=== PATIENT | male | born 1935 | race Hispanic/Latino ===

== ENCOUNTER 2017-09-16 13:50 | Outpatient (CLI) | payer MEDICARE ==
--- NOTE | 2017-09-16 15:12 | RAD ---
2 VIEWS CHEST: Date: 09/16/17 COMPARISON: 04/26/14. HISTORY: COPD exacerbation. FINDINGS: There are increased linear and interstitial densities bilaterally with pulmonary hyperinflation. Thes e findings are consistent with COPD in the proper clinical setting. Bilateral hilar shadows are prominent, right greater than left. There is atherosclerotic calcificatio n in the aortic arch. IMPRESSION: 1. Linear interstitial density and pulmonary hyperinflation, consistent with the provided history of COPD. 2. Bilateral hilar shadows are prominent, likely vascular in nature on the basis of pulmonary arteri al dilation. In order to exclude underlying lymphadenopathy, a follow-up chest CT with IV contrast is advised. No lobar consolidation or alveolar edema. CODE T. POS: [facility]
== END 2017-09-16 13:51 | disposition home or self-care (01) ==
LOC: SCSRAD 13:50
PROVIDERS: ATTEND Family Medicine
DX: J44.1 Chronic obstructive pulmonary disease with (acute) exacerbation (principal)
CPT/HCPCS: 71020

== ENCOUNTER 2017-10-29 11:00 | Emergency (ER) | payer MEDICARE ==
--- NOTE | 2017-10-29 12:09 | RAD ---
CHEST ONE VIEW: HISTORY: An 82-year-old male with COPD exacerbation. J44.1 FINDINGS: Atherosclerosis of the aorta. There are some calcifications in the left upper chest consistent with old granulomatous disease. Stable-appearing blunting of the costophrenic angles and some linear scar ring in the bases. IMPRESSION: Stable atherosclerosis of the aorta with some ectasia. Old granulomatous disease. Mild scarring in the lower lung zones bilaterally, unchanged from prior exam, 09/16/2017. POS: [facility]
[2017-10-29] MEDS ORDERED: methylPREDNISolone Sod Succ/PF 125 MG/2 ML VIAL ONE (13:36)
[2017-10-29 13:44] LABS: Mean Corpuscular HGB CONC 33.5 g/dL (32.0-36.0); Mean Platelet Volume 6.5 fL (7.4-10.4); Platelet Count 160 thou/uL (130-400); RBC Distribution Width 11.9 % (11.5-14.5); Red Blood Cell (RBC) Count 3.82 mill/uL (4.70-6.10); White Blood Cell (WBC) Count 6.5 thou/uL (4.8-10.8)
[2017-10-29 13:56] LABS: Band 17 % (5-11); Eosinophils 1 % (0-10); Lymphocytes 3 % (21-51); MDiff Complete? YES; Macrocytosis SLIGHT = 6-15 cells (100X) (0-5/hpf); Monocytes 8 % (0-10); Neutrophil 70 % (42-75); Ovalocytes SLIGHT = 2-5 cells (100X) (0-1/hpf); PLT Morphology Comment Appears Adequate; Polychromasia SLIGHT = 2-3 cells (100X) (0-2/hpf); Reactive Lymphocytes 1 % (0-10)
[2017-10-29 14:07] LABS: ALT (SGPT) 16 U/L (8-55); AST (SGOT) 17 U/L (5-34); Albumin 3.9 g/dL (3.4-4.8); Alkaline Phosphatase 59 U/L (40-150); Anion Gap 13 mmol/L (10-20); BUN (Urea Nitrogen) 16 mg/dL (8.4-25.7); Bilirubin, Total 0.4 mg/dL (0.2-1.2); Calc. Creatinine Clearance 0 mL/min (70-130); Calcium 9.2 mg/dL (7.8-10.44); Carbon Dioxide 26 mmol/L (23-31); Chloride 100 mmol/L (98-107); Estimated GFR-MDRD 88; Globulin 2.7 g/dL (2.4-3.5); Glucose 99 mg/dL (83-110); Lipase 8 U/L (8-78); Potassium 3.9 mmol/L (3.5-5.1); Protein, Total 6.6 g/dL (5.8-8.1); Sodium 135 mmol/L (136-145)
[2017-10-29 14:08] LABS: CKMB 1.8 ng/mL (0-6.6); Troponin I 0.016 ng/mL (< 0.028)
== END 2017-10-29 15:25 | disposition home or self-care (01) ==
LOC: ERS 11:00
DX: J20.9 Acute bronchitis, unspecified (principal); J06.9 Acute upper respiratory infection, unspecified; E11.9 Type 2 diabetes mellitus without complications; I10 Essential (primary) hypertension; G20 Parkinson's disease; J44.9 Chronic obstructive pulmonary disease, unspecified; Z87.891 Personal history of nicotine dependence; Z79.899 Other long term (current) drug therapy; Z79.51 Long term (current) use of inhaled steroids
CPT/HCPCS: 71010; 80053; 82553; 83690; 83880; 84484; 85025; 93005; 94640; 96374; J2930; J7620

== ENCOUNTER 2018-04-29 12:02 | Inpatient (IN) | payer MEDICARE ==
[2018-04-29 12:57] LABS: ALT (SGPT) 17 U/L (8-55); Albumin 3.9 g/dL (3.4-4.8); Alkaline Phosphatase 66 U/L (40-150); Anion Gap 17 mmol/L (10-20); BUN (Urea Nitrogen) 28 mg/dL (8.4-25.7); Bilirubin, Total 0.7 mg/dL (0.2-1.2); Calc. Creatinine Clearance 0 mL/min (70-130); Calcium 9.3 mg/dL (7.8-10.44); Carbon Dioxide 25 mmol/L (23-31); Chloride 93 mmol/L (98-107); Estimated GFR-MDRD 60; Globulin 3.4 g/dL (2.4-3.5); Glucose 112 mg/dL (83-110); Potassium 3.7 mmol/L (3.5-5.1); Protein, Total 7.3 g/dL (5.8-8.1); Sodium 131 mmol/L (136-145)
[2018-04-29 13:06] LABS: Band 3 % (5-11); Hemoglobin 13.4 g/dL (14.0-18.0); Lymphocytes 5 % (21-51); MDiff Complete? YES; Mean Corpuscular HGB CONC 34.9 g/dL (32.0-36.0); Mean Corpuscular Hemoglobin 32.6 pg (27.0-31.0); Mean Corpuscular Volume 93.4 fL (78.0-98.0); Mean Platelet Volume 7.4 fL (7.4-10.4); Monocytes 9 % (0-10); Neutrophil 83 % (42-75); PLT Morphology Comment Appears Adequate; Platelet Count 224 thou/uL (130-400); RBC Distribution Width 11.7 % (11.5-14.5); White Blood Cell (WBC) Count 18.6 thou/uL (4.8-10.8)
[2018-04-29] MEDS ORDERED: Piperacillin/Tazobactam 4.5 GM VIAL ONE (13:19)
[2018-04-29] MEDS ORDERED: Sodium Chloride 0.9% 100 ML ONE (13:19)
[2018-04-29 13:22] LABS: AST (SGOT) 19 U/L (5-34)
--- NOTE | 2018-04-29 14:01 | RAD ---
AP CHEST: INDICATIONS: Fever. COMPARISON: 10/29/2017 FINDINGS: The lungs appear clear with no infiltrate identified. Heart size is mildly prominent but stable. Va scular markings are within the normal range. IMPRESSION: No acute process identified on portable examination. POS: [facility]
[2018-04-29 14:22] LABS: Bilirubin Negative (Negative); Blood, Urine Moderate (Negative); Glucose, Urine (Dipstick) Negative (Negative); Leukocyte Moderate (Negative); Nitrite Positive (Negative); Protein, Urine (Dipstick) 100 mg/dL (Neg-Trace); Urobilinogen 0.2 mg/dL (0.2-1.0)
[2018-04-29 14:23] LABS: Clarity Cloudy (Clear)
[2018-04-29 14:37] LABS: Bacteria/HPF 4+ HPF (None Seen); Squamous Epithelial 0-3 HPF (0-3); WBC/HPF 21-50 HPF (0-3)
[2018-04-29] MEDS ORDERED: Sodium Chloride 0.9% 1,000 ML IV SCH (16:45)
[2018-04-29 17:12] VITALS: BMI 35.3
[2018-04-29] MEDS ORDERED: Ondansetron HCl/PF 4 MG/2 ML Vial IVP PRN (18:34)
[2018-04-29] MEDS ORDERED: Ondansetron ODT 4 MG TAB PO PRN (18:34)
[2018-04-29] MEDS ORDERED: Acetaminophen 500 MG TAB PO PRN (18:34)
[2018-04-29] MEDS ORDERED: Benzonatate 100 MG CAP PO PRN (18:34)
[2018-04-29] MEDS: Sodium Chloride 0.9% 1,000 ML IV SCH (19:43)
[2018-04-29] MEDS ORDERED: Vancomycin HCl 1 GM in Premix Bag 1 BAG IVPB SCH (21:00)
[2018-04-29] MEDS: Famotidine 20 MG TAB PO SCH (21:05)
[2018-04-29] MEDS: Propranolol 10 MG TAB PO SCH (21:05)
[2018-04-29] MEDS: Topiramate 100 MG TAB PO SCH (21:06)
[2018-04-29] MEDS: cefTRIAXone\\ROCEPHIN 2 GM in Sodium Chloride 0.9% 100 ML IVPB SCH (21:13)
--- NOTE | 2018-04-30 01:49 | HP ---
DATE OF ADMISSION: 04/29/2018 PRIMARY CARE PROVIDER: Dr. Marilu Isaac. CHIEF COMPLAINT: Cough, general weakness, and fever. HISTORY OF PRESENT ILLNESS: This is an 82-year-old male who presents to [facility] Emergency Department with family members, who state the patient has had increased generalized weakne ss, fever, chills, and lethargy. Patient's appetite has been diminished over the last 24-48 hours, a nd patient was noted with diarrhea, multiple episodes in the last 48 hours. Patient apparently was n ot able to use his rolling walker to ambulate and needed assistance from family members. Family memb ers state, patient slipped down while they were attempting to help him up, but did not lose conscious ness or sustain head injury. Family has noted increased cough over the last 48 hours, nonproductive without any specific family members with similar symptoms. Patient had just returned from a trip to the [facility] to attend a for his brother. No other sick contacts or exposure history note d. No specific change to his chronic medications, however, had been placed on Geodon by his primary care provider due to some aggressive behavior noted by family members. Patient denies any current sm oking, states he used tobacco, but quit in the . All immunizations are current per family repor t. Patient has also noticed decreased urine output with very concentrated appearing urine. No long- term or recurrent urinary tract infections per family report. Patient was incidentally admitted in 2 014 for fall and generalized weakness diagnosed with possible left lower lobe pneumonia. In the [facility] room, patient underwent general evaluation including chest imaging showing no acute infiltrate. Patient received IV normal saline x2 liters in addition to Zosyn, Levaquin, and DuoNebs. Patient w as suspected for sepsis presentation of pulmonary source and transferred to the telemetry unit for fu rther evaluation. PAST MEDICAL HISTORY: 1. Resting tremors. 2. Former tobacco use. 3. Chronic obstructive pulmonary disease/emphysema. 4. Hypertension. 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 CURRENT MEDICATIONS: 1. Vitamin C 500 mg 1 tab p.o. daily. 2. Budesonide 0.5 mg inhaled daily. 3. Calcium carbonate 600 mg p.o. daily. 4. Fluocinonide 0.05% one application topically b.i.d. 5. Perforomist 20 mcg inhaled b.i.d. 6. Hydrochlorothiazide 12.5 mg p.o. daily. 7. DuoNeb 3 mL nebulized q.i.d. 8. Lisinopril 2.5 mg p.o. daily. 9. Prednisone 2.5 mg p.o. q.a.m. 10. Propranolol 10 mg p.o. b.i.d. 11. Sertraline 100 mg p.o. daily. 12. Topamax 100 mg p.o. b.i.d. 13. Geodon 20 mg p.o. at bedtime. ALLERGIES: No known drug allergies. FAMILY HISTORY: Positive for coronary artery disease and diabetes mellitus. SOCIAL HISTORY: Patient is , accompanied by his and daughter in the hospital. Resides i [place], [place]. Retired. Remote tobacco use, quitting in the . No alcohol or illicit drug us e. REVIEW OF SYSTEMS: The following complete review of systems was otherwise negative, except as stated per HPI: Constitutional: Weight loss or gain, ability to conduct usual activities. Skin: Rash, i tching. Eyes: Double vision, pain. ENT/Mouth: Nose bleeding, neck stiffness, pain, tenderness. C ardiovascular: Palpitations, dyspnea on exertion, orthopnea. Respiratory: Shortness of breath, whe ezing, cough, hemoptysis, fever, or night sweats. Gastrointestinal: Poor appetite, abdominal pain, heartburn, nausea, vomiting, constipation, or diarrhea. Genitourinary: Urgency, frequency, dysuria, nocturia. Musculoskeletal: Pain, swelling. Neurologic/Psychiatric: Anxiety, depression. Allergy /Immunologic: Skin rash, bleeding tendency. PHYSICAL EXAMINATION: VITAL SIGNS: Currently, blood pressure 113/56, pulse is 80, respiratory rate 24, temperature 98.9 de grees Fahrenheit, O2 saturation 99% on 2 liters per minute by nasal cannula. GENERAL APPEARANCE: This is an 82-year-old male, lethargic, opens eyes and answers question s when directly engaged in mild respiratory distress. HEENT: Pupils are equal, round, and reactive to light and accommodation. Extraocular muscles are in tact. No scleral icterus, no conjunctival injection. Nares patent. OP is clear. Teeth in poor rep air. Oral mucosa dry appearing. NECK: Supple, no cervical adenopathy, no thyromegaly, no carotid bruits, no JVD appreciated. Cervic al spine with full active and passive range of motion. No meningeal signs appreciated. CHEST: Transmitted upper airway sounds coarse in the basilar segments bilaterally. No expiratory wh eezing. Prolonged expiratory phase noted. CARDIOVASCULAR: S1, S2 with distant heart sounds. No murmur, rub, or gallop appreciated. ABDOMEN: Obese landmarks difficult to palpate due to patient's body habitus. No palpable mass. No rebound or guarding noted. EXTREMITIES: Warm and dry with fair turgor. Edema noted of lower extremities in the mid pacheco region . Pulses palpable distally at the dorsalis pedis, posterior tibial, and popliteal arteries bilateral ly. Capillary refill less than 2 seconds. NEUROLOGIC: Cranial nerves II-XII are grossly intact. Resting tremor noted in the upper extremities and neck region. Patient not observed ambulatory during the exam. Moves all extremities on command . PERTINENT LABORATORY DATA AND X-RAY FINDINGS: Sodium 131, potassium 3.7, chloride 93, CO2 of 25, BUN 28, creatinine 1.17, estimated GFR of 60, glucose 112. Lactic acid level 1.8, calcium 9.3. LFTs wi thin normal limits. BNP 74. CBC showed a white blood cell count of 18.6, hemoglobin 13, hematocrit 38, platelet count 224 with 83% neutrophils. Urinalysis positive for blood, nitrite, and leukocyte e sterase with 7-10 rbc's per high power field and 21-50 wbc's per high power field, 4+ bacteria noted. Portable chest x-ray dated 04/29/2018 showed no acute cardiopulmonary process. EKG dated 8 by my interpretation shows sinus mechanism with heart rates in the 70s. Normal R-wave progression noted in the precordial leads. Normal axis. No acute ST-T wave changes appreciated. ASSESSMENT AND PLAN: 1. Sepsis. Patient will be admitted to the telemetry unit. Suspect secondary to urinary tract sour ce. Questionable influence of potential unrecognized pneumonia. We will initiate vancomycin 1.5 gra ms q.12 hours with additional Rocephin 2 grams IV q.24 hours. Await final blood and urine culture re sults. Initial urinalysis suspicious for infectious process. Continue intravenous normal saline 100 mL per hour. Continue general sepsis protocol. 2. Urinary tract infection. Suspected given urinalysis at the time of admission. See #1 above. Co ntinue IV fluids as outlined previously and monitor urine output. 3. Acute dyspnea. Suspect multifactorial given patient's history of chronic obstructive pulmonary d isease/emphysema in addition to current sepsis. We will continue general supportive management inclu ding oxygen supplementation at 2-3 liters per minute by nasal cannula. Treat underlying conditions i ncluding chronic obstructive pulmonary disease with chronic bronchodilator therapy and Pulmicort. 4. Acute on chronic hypoxemic respiratory failure. Suspect multifactorial as stated previously. Co ntinue DuoNebs as stated previously. Pulmicort daily. Start Solu-Medrol 40 mg IV q.6 hours. 5. Acute kidney injury. Suspect secondary to #1. We will continue IV fluids as stated previously. Avoid nephrotoxic agents and contrast media. Repeat creatinine in the a.m. 6. Hyponatremia. Suspect secondarily to hydrochlorothiazide use. We will repeat sodium level in th e a.m. 7. Neutrophilic leukocytosis. Continue treatment as outlined in #1. Repeat CBC in the a.m. 8. Prophylaxis. Sequential compression devices while in bed. Protonix 40 mg p.o. b.i.d. PT and Sp eech therapy evaluation in the a.m. 9. Code status is FULL. Surrogate medical decision maker is patient's spouse.
[2018-04-30] MEDS: Sodium Chloride 0.9% 1,000 ML IV SCH ×2 (03:53→14:35)
[2018-04-30 05:23] LABS: Anion Gap 13 mmol/L (10-20); BUN (Urea Nitrogen) 24 mg/dL (8.4-25.7); Calc. Creatinine Clearance 91 mL/min (70-130); Calcium 8.2 mg/dL (7.8-10.44); Carbon Dioxide 24 mmol/L (23-31); Chloride 99 mmol/L (98-107); Estimated GFR-MDRD Greater than 90; Glucose 113 mg/dL (83-110); Sodium 133 mmol/L (136-145)
[2018-04-30 05:26] LABS: Potassium 2.9 mmol/L (3.5-5.1)
[2018-04-30 05:31] LABS: Band 28 % (5-11); Hemoglobin 11.3 g/dL (14.0-18.0); Lymphocytes 1 % (21-51); MDiff Complete? YES; Mean Corpuscular HGB CONC 33.7 g/dL (32.0-36.0); Mean Corpuscular Hemoglobin 33.3 pg (27.0-31.0); Mean Corpuscular Volume 98.9 fL (78.0-98.0); Mean Platelet Volume 6.2 fL (7.4-10.4); Metamyelocyte 1 % (0-0); Neutrophil 70 % (42-75); PLT Morphology Comment Appears Adequate; Platelet Count 171 thou/uL (130-400); RBC Distribution Width 11.6 % (11.5-14.5); Red Blood Cell (RBC) Count 3.39 mill/uL (4.70-6.10); White Blood Cell (WBC) Count 11.3 thou/uL (4.8-10.8)
[2018-04-30] MEDS: Arformoterol 15 MCG/2 ML NEB NEB SCH ×2 (05:42→19:23)
[2018-04-30] MEDS: Budesonide 0.5 MG/2 ML NEB NEB SCH (05:42)
[2018-04-30] MEDS: Topiramate 100 MG TAB PO SCH ×2 (09:57→19:59)
[2018-04-30] MEDS: Vancomycin HCl 750 MG in Sodium Chloride 0.9% 250 ML 250 ML IVPB SCH ×2 (09:57→21:35)
[2018-04-30] MEDS: Propranolol 10 MG TAB PO SCH ×2 (09:57→19:59)
[2018-04-30] MEDS: Potassium Chloride 20 MEQ TAB PO SCH ×2 (11:57→17:54)
--- NOTE | 2018-04-30 12:06 | PDOC.PN ---
- Subjective Encounter Start Date: 04/30/18 Encounter Start Time: 10:00 Subjective: awake, didn't sleep last night -: is npo for speech to clear him for swallowing - Objective Resuscitation Status: Resuscitation Status FULL:Full Resuscitation MAR Reviewed: Yes Vital Signs & Weight: Vital Signs (12 hours) Temp Pulse Resp BP Pulse Ox 04/30/18 10:28 100 04/30/18 10:25 89 16 04/30/18 07:50 97.8 F 89 16 141/74 H 96 04/30/18 05:43 96 04/30/18 05:42 96 04/30/18 05:38 90 22 H 96 04/30/18 04:00 99.5 F 87 20 142/72 H 100 Weight Admit Weight 205 lb 12.8 oz Weight 205 lb 12.8 oz I&O: 04/29/18 04/30/18 05/01/18 06:59 06:59 06:59 Output Total 400 Balance -400 Result Diagrams: 04/30/18 05:01 04/30/18 05:01 Additional Labs: Accuchecks 04/30/18 04/30/18 04/29/18 10:33 05:50 21:09 POC Glucose 143 H 125 H 109 04/29/18 16:44 POC Glucose 116 H Phys Exam - Physical Examination HEENT: PERRLA, moist MMs Neck: no JVD, supple Respiratory: no wheezing, no rales rhonchi+ Cardiovascular: RRR, no significant murmur Gastrointestinal: soft, non-tender, positive bowel sounds Musculoskeletal: no edema, pulses present Neurological: non-focal, moves all 4 limbs Dx/Plan (1) UTI (urinary tract infection) Status: Acute Qualifiers: Urinary tract infection type: acute cystitis Hematuria presence: without hematuria Qualified Code(s): N30.00 - Acute cystitis without hematuria (2) Sepsis Code(s): A41.9 - SEPSIS, UNSPECIFIED ORGANISM Status: Acute Qualifiers: Sepsis type: sepsis due to unspecified organism Qualified Code(s): A41.9 - Sepsis, unspecified organism (3) COPD (chronic obstructive pulmonary disease) Status: Acute Qualifiers: COPD type: COPD with acute exacerbation Qualified Code(s): J44.1 - Chronic obstructive pulmonary disease with (acute) exacerbation (4) HTN (hypertension) Code(s): I10 - ESSENTIAL (PRIMARY) HYPERTENSION Status: Chronic Qualifiers: Hypertension type: essential hypertension Qualified Code(s): I10 - Essential (primary) hypertension (5) DM type 2 (diabetes mellitus, type 2) Status: Chronic Qualifiers: 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 on propranolol, topamax bid (may change to daily if he becomes lethargic). Review of Systems - Medications/Allergies Allergies/Adverse Reactions: Allergies Allergy/AdvReac Type Severity Reaction Status Date / Time No Known Allergies Allergy Verified 04/24/14 01:54 Medications: Current Medications Acetaminophen (Tylenol) 1,000 mg PO Q6H PRN PRN Reason: Headache/Fever or Mild Pain Albuterol/Ipratropium (Duoneb) 3 ml NEB [id number] [facility] Last Admin: 04/30/18 10:25 Dose: 3 ml Arformoterol Tartrate (Brovana) 15 mcg NEB BID-RT [facility] Last Admin: 04/30/18 05:42 Dose: 15 mcg Benzonatate (Tessalon) 200 mg PO Q6H PRN PRN Reason: Cough Budesonide (Pulmicort Neb Solution) 0.5 mg NEB DAILY-RT [facility] Last Admin: 04/30/18 05:42 Dose: 0.5 mg Famotidine (Pepcid) 20 mg PO QPM [facility] Last Admin: 04/29/18 21:05 Dose: 20 mg Ceftriaxone Sodium 2 gm/ (Sodium Chloride) 100 mls @ 200 mls/hr IVPB Q24HR [facility] Last Admin: 04/29/18 21:13 Dose: 100 mls Sodium Chloride (Normal Saline 0.9%) 1,000 mls @ 100 mls/hr IV .Q10H [facility] Last Admin: 04/30/18 03:53 Dose: 1,000 mls Vancomycin HCl 750 mg/ Sodium (Chloride) 250 mls @ 250 mls/hr IVPB Q12HR [facility] Last Admin: 06/30/18 09:57 Dose: 250 mls Methylprednisolone Sodium Succinate (Solu-Medrol) 20 mg IVP Q8HR [facility] Miscellaneous Medication (Pharmacy To Dose) 1 each PO PRN PRN PRN Reason: Pharmacy to dose Ondansetron HCl (Zofran Odt) 4 mg PO Q6H PRN PRN Reason: Nausea/Vomiting Ondansetron HCl (Zofran) 4 mg IVP Q6H PRN PRN Reason: Nausea/Vomiting Potassium Chloride (K-Dur) 40 meq PO Q6HR [facility] Stop: 05/01/18 18:01 Last Admin: 04/30/18 11:57 Dose: 40 meq Propranolol HCl (Inderal) 10 mg PO BID [facility] Last Admin: 04/30/18 09:57 Dose: 10 mg Sertraline HCl (Zoloft) 100 mg PO DAILY [facility] Last Admin: 04/30/18 09:57 Dose: 100 mg Sodium Chloride (Flush - Normal Saline) 10 ml IVF Q12HR [facility] Last Admin: 04/30/18 09:57 Dose: 10 ml Sodium Chloride (Flush - Normal Saline) 10 ml IVF PRN PRN PRN Reason: Saline Flush Topiramate (Topamax) 100 mg PO BID [facility] Last Admin: 04/30/18 09:57 Dose: 100 mg
[2018-04-30] MEDS: cefTRIAXone\\ROCEPHIN 2 GM in Sodium Chloride 0.9% 100 ML IVPB SCH (19:59)
[2018-04-30] MEDS: Famotidine 20 MG TAB PO SCH (19:59)
[2018-05-01] MEDS: Potassium Chloride 20 MEQ TAB PO SCH ×4 (01:23→17:26)
[2018-05-01] MEDS: Sodium Chloride 0.9% 1,000 ML IV SCH ×2 (01:27→09:18)
[2018-05-01 05:13] LABS: #Lymphocytes 0.4 thou/uL (1.20-3.40); #Monocytes 0.8 thou/uL (0.11-0.59); %Eosinophils 0.1 % (0.0-10.0); %Lymphocytes 2.9 % (21.0-51.0); %Monocytes 6.6 % (0.0-10.0); %Neutrophils 90.5 % (42.0-75.0); Hemoglobin 11.1 g/dL (14.0-18.0); Mean Corpuscular HGB CONC 32.8 g/dL (32.0-36.0); Mean Corpuscular Hemoglobin 32.9 pg (27.0-31.0); Platelet Count 185 thou/uL (130-400); RBC Distribution Width 11.6 % (11.5-14.5); Red Blood Cell (RBC) Count 3.38 mill/uL (4.70-6.10); White Blood Cell (WBC) Count 12.1 thou/uL (4.8-10.8)
[2018-05-01 05:32] LABS: Anion Gap 12 mmol/L (10-20); BUN (Urea Nitrogen) 23 mg/dL (8.4-25.7); Calc. Creatinine Clearance 101 mL/min (70-130); Calcium 7.5 mg/dL (7.8-10.44); Carbon Dioxide 19 mmol/L (23-31); Chloride 104 mmol/L (98-107); Estimated GFR-MDRD Greater than 90; Glucose 141 mg/dL (83-110); Potassium 3.4 mmol/L (3.5-5.1); Sodium 132 mmol/L (136-145)
[2018-05-01 08:30] LABS: Vancomycin, Trough 11.9 ug/mL
[2018-05-01] MEDS ORDERED: Vancomycin HCl 1 GM in Premix Bag 1 BAG IVPB SCH (09:00)
[2018-05-01] MEDS: Budesonide 0.5 MG/2 ML NEB NEB SCH (09:04)
[2018-05-01] MEDS: Arformoterol 15 MCG/2 ML NEB NEB SCH ×2 (09:04→18:52)
[2018-05-01] MEDS: Lisinopril 5 MG TAB PO SCH (09:09)
[2018-05-01] MEDS: Cyanocobalamin (Vitamin B-12) 1,000 MCG TAB PO SCH (09:09)
[2018-05-01] MEDS: Calcium Carbonate 600 MG TAB PO SCH (09:09)
[2018-05-01] MEDS: Ascorbic Acid 500 mg Chewable Tablet PO SCH (09:09)
[2018-05-01] MEDS: Propranolol 10 MG TAB PO SCH ×2 (09:09→20:26)
[2018-05-01] MEDS: Folic Acid 1 MG TAB PO SCH (09:09)
[2018-05-01] MEDS: Enoxaparin Sodium 40 MG/0.4 ML SYRINGE SC SCH (09:10)
[2018-05-01] MEDS: Topiramate 100 MG TAB PO SCH ×2 (09:18→20:27)
--- NOTE | 2018-05-01 11:23 | PDOC.PN ---
- Subjective Encounter Start Date: 05/01/18 Encounter Start Time: 07:30 -: old records requested/rev Patient seen and examined for sepsis, pt is on home oxygen, very weak, No overnight events - Objective Resuscitation Status: Resuscitation Status FULL:Full Resuscitation MAR Reviewed: Yes Vital Signs & Weight: Vital Signs (12 hours) Temp Pulse Resp BP BP Pulse Ox 05/01/18 09:09 77 147/70 H 97 05/01/18 09:04 77 16 05/01/18 08:00 98.4 F 76 14 100 05/01/18 07:57 98.4 F 76 14 147/70 H 100 05/01/18 04:00 98.3 F 75 20 139/75 97 05/01/18 03:00 95 Weight Admit Weight 205 lb 12.8 oz Weight 205 lb 12.8 oz I&O: 04/30/18 05/01/18 05/02/18 06:59 06:59 06:59 Intake Total 3297 240 Output Total 400 150 Balance -400 3147 240 Result Diagrams: 05/01/18 04:55 05/01/18 04:55 Additional Labs: Accuchecks 05/01/18 04/30/18 04/30/18 05:13 20:17 16:28 POC Glucose 158 H 170 H 148 H EKG Reviewed by me: Yes (nsr) Phys Exam - Physical Examination Constitutional: NAD HEENT: PERRLA, moist MMs, sclera anicteric Neck: no JVD, supple Respiratory: no rales, wheezing present reduced air entry Cardiovascular: RRR, no significant murmur, no rub Gastrointestinal: soft, non-tender, no distention, positive bowel sounds obesity+ Musculoskeletal: pulses present, edema present Neurological: non-focal Lymphatic: no nodes Psychiatric: normal affect Skin: no rash, normal turgor Dx/Plan (1) COPD exacerbation Code(s): J44.1 - CHRONIC OBSTRUCTIVE PULMONARY DISEASE W (ACUTE) EXACERBATION Status: Acute (2) Hypokalemia Code(s): E87.6 - HYPOKALEMIA Status: Acute (3) Hyponatremia Code(s): E87.1 - HYPO-OSMOLALITY AND HYPONATREMIA Status: Acute (4) Sepsis Code(s): A41.9 - SEPSIS, UNSPECIFIED ORGANISM Status: Acute Qualifiers: Sepsis type: sepsis due to unspecified organism Qualified Code(s): A41.9 - Sepsis, unspecified organism (5) UTI (urinary tract infection) Status: Acute Qualifiers: Urinary tract infection type: acute cystitis Hematuria presence: without hematuria Qualified Code(s): N30.00 - Acute cystitis without hematuria (6) Anxiety and depression Code(s): F41.9 - ANXIETY DISORDER, UNSPECIFIED; F32.9 - MAJOR DEPRESSIVE DISORDER, SINGLE EPISODE, UNSPECIFIED Status: Chronic (7) DM type 2 (diabetes mellitus, type 2) Status: Chronic Qualifiers: Diabetes mellitus middle or intermediate school principal insulin use: without middle or intermediate school principal use Diabetes mellitus complication status: with unspecified complications Qualified Code(s) : E11.8 - Type 2 diabetes mellitus with unspecified complications (8) HTN (hypertension) Code(s): I10 - ESSENTIAL (PRIMARY) HYPERTENSION Status: Chronic Qualifiers: Hypertension type: essential hypertension Qualified Code(s): I10 - Essential (primary) hypertension (9) Macrocytic anemia Code(s): D53.9 - NUTRITIONAL ANEMIA, UNSPECIFIED Status: Chronic (10) Obesity (BMI 30-39.9) Code(s): E66.9 - OBESITY, UNSPECIFIED Status: Chronic - Plan cont current plan of care, plan discussed w/ family, continue antibiotics, PT/OT , respiratory therapy * code status discussed with family, see advance care planning note * continue rocephin * DC vancomycin * continue IV steroid * pt and family does not want to go to SNU * code status changed to DNR * social work to assist discharge needs * add folic acid, vitamin B12. Review of Systems - Review of Systems Constitutional: weakness, malaise. negative: fever, chills, sweats, other Respiratory: Shortness of Breath, Wheezing. negative: Cough, Dry, Hemoptysis, SOB with Excertion, Pleuritic Pain, Sputum Cardiovascular: negative: chest pain, palpitations, orthopnea, paroxysmal nocturnal dyspnea, edema, light headedness, other Gastrointestinal: negative: Nausea, Vomiting, Abdominal Pain, Diarrhea, Constipation, Melena, Hematochezia, Other Genitourinary: negative: Dysuria, Frequency, Incontinence, Hematuria, Retention , Other Musculoskeletal: negative: Neck Pain, Shoulder Pain, Arm Pain, Back Pain, Hand Pain, Leg Pain, Foot Pain, Other Skin: negative: Rash, Lesions, Rodney, Bruising, Other - Medications/Allergies Allergies/Adverse Reactions: Allergies Allergy/AdvReac Type Severity Reaction Status Date / Time No Known Allergies Allergy Verified 04/24/14 01:54 Medications: Current Medications Acetaminophen (Tylenol) 1,000 mg PO Q6H PRN PRN Reason: Headache/Fever or Mild Pain Albuterol/Ipratropium (Duoneb) 3 ml NEB [id number] [facility] Last Admin: 05/01/18 09:04 Dose: 3 ml Arformoterol Tartrate (Brovana) 15 mcg NEB BID-RT [facility] Last Admin: 05/01/18 09:04 Dose: 15 mcg Ascorbic Acid (Vitamin C) 500 mg PO DAILY [facility] Last Admin: 05/01/18 09:09 Dose: 500 mg Benzonatate (Tessalon) 200 mg PO Q6H PRN PRN Reason: Cough Budesonide (Pulmicort Neb Solution) 0.5 mg NEB DAILY-RT [facility] Last Admin: 05/01/18 09:04 Dose: 0.5 mg Calcium Carbonate (Caltrate) 600 mg PO DAILY [facility] Last Admin: 05/01/18 09:09 Dose: 600 mg Cyanocobalamin (Vitamin B-12) 1,000 mcg PO DAILY [facility] Last Admin: 05/01/18 09:09 Dose: 1,000 mcg Enoxaparin Sodium (Lovenox) 40 mg SC 0900 [facility] Last Admin: 05/01/18 09:10 Dose: 40 mg Famotidine (Pepcid) 20 mg PO QPM [facility] Last Admin: 04/30/18 19:59 Dose: 20 mg Folic Acid (Folvite) 1 mg PO DAILY [facility] Last Admin: 05/01/18 09:09 Dose: 1 mg Ceftriaxone Sodium 2 gm/ (Sodium Chloride) 100 mls @ 200 mls/hr IVPB Q24HR [facility] Last Admin: 04/30/18 19:59 Dose: 100 mls Sodium Chloride (Normal Saline 0.9%) 1,000 mls @ 100 mls/hr IV .Q10H [facility] Last Admin: 05/01/18 09:18 Dose: Not Given Vancomycin HCl 1 gm/ Device 200 mls @ 200 mls/hr IVPB Q12HR [facility] Last Admin: 05/01/18 09:12 Dose: 200 mls Lisinopril (Zestril) 2.5 mg PO DAILY [facility] Last Admin: 05/01/18 09:09 Dose: 2.5 mg Methylprednisolone Sodium Succinate (Solu-Medrol) 20 mg IVP Q8HR [facility] Last Admin: 05/01/18 05:55 Dose: 20 mg Miscellaneous Medication (Pharmacy To Dose) 1 each PO PRN PRN PRN Reason: Pharmacy to dose Ondansetron HCl (Zofran Odt) 4 mg PO Q6H PRN PRN Reason: Nausea/Vomiting Ondansetron HCl (Zofran) 4 mg IVP Q6H PRN PRN Reason: Nausea/Vomiting Potassium Chloride (K-Dur) 40 meq PO Q6HR [facility] Stop: 05/01/18 18:01 Last Admin: 05/01/18 05:55 Dose: 40 meq Propranolol HCl (Inderal) 10 mg PO BID [facility] Last Admin: 05/01/18 09:09 Dose: 10 mg Sertraline HCl (Zoloft) 100 mg PO DAILY [facility] Last Admin: 05/01/18 09:09 Dose: 100 mg Sodium Chloride (Flush - Normal Saline) 10 ml IVF Q12HR [facility] Last Admin: 05/01/18 09:11 Dose: Not Given Sodium Chloride (Flush - Normal Saline) 10 ml IVF PRN PRN PRN Reason: Saline Flush Topiramate (Topamax) 100 mg PO BID [facility] Last Admin: 05/01/18 09:18 Dose: 100 mg Ziprasidone (Geodon) 20 mg PO QPM[facility]
--- NOTE | 2018-05-01 12:42 | PRG ---
ADVANCE PLANNING CARE NOTE DATE OF SERVICE: 05/01/2018 The patient has underlying chronic respiratory failure, advanced COPD, chronic physical deconditioning, diabetes, hypertension, macrocytic anemia and this time he is admitted for sepsis. Reason for discussion with the family goal of care. The patient's , the patient's daughter and patient was in conversation. I spoke with the patient and his family member including his medical power of trade mark attorney, his about code status. I spent almost 5-6 minutes just to discuss about code status, what mean of DNR and I have also spent another 5 minutes to discuss about his goal of care and current condition. I also spent another 5 minutes to discuss with the family member about his discharge planning including home, home health, hospice, comfort care. Family member, especially reported that patient did not wanted to go for any kind of prison home or any kind of placement and patient personally preferred to go home. expressed wish to have some help at home including home health. The patient's daughter expressed that she and other sister is available to help her mother at home. The patient is bed bound and he is not improving and finally discussed with the daughter at bedside and she made her own decision with the patient that patient does not wanted to be prolonging his life in bed quality whatever he is right now, the patient does not want to be a CPR or intubated even one time in case of cardiopulmonary arrest, but she expressed her wish to continue treatment whatever we are doing. At this point, we decided that patient is a DNR and we honored his wish as well as his 's wish and we also honoring that the patient does not want to go to the prison home or alf rather he will go home with home health and necessary equipment with the help of case making machine operator will be arranged. Today to discuss advanced care for the patient, I spent at bedside, 16 minutes in addition to examining the patient and for my routine progress note. MINDY
[2018-05-01] MEDS: Ziprasidone 20 MG CAP PO SCH (17:26)
[2018-05-01] MEDS: cefTRIAXone\\ROCEPHIN 2 GM in Sodium Chloride 0.9% 100 ML IVPB SCH (20:25)
[2018-05-01] MEDS: Famotidine 20 MG TAB PO SCH (20:26)
[2018-05-02 05:48] LABS: Anion Gap 8 mmol/L (10-20); BUN (Urea Nitrogen) 20 mg/dL (8.4-25.7); Calc. Creatinine Clearance 97 mL/min (70-130); Calcium 8.2 mg/dL (7.8-10.44); Carbon Dioxide 26 mmol/L (23-31); Chloride 108 mmol/L (98-107); Estimated GFR-MDRD Greater than 90; Glucose 136 mg/dL (83-110); Magnesium 1.9 mg/dL (1.6-2.6); Sodium 138 mmol/L (136-145)
[2018-05-02 05:58] LABS: Phosphorus 1.5 mg/dL (2.3-4.7)
[2018-05-02 06:06] LABS: Band 15 % (5-11); Eosinophils 1 % (0-10); Hemoglobin 11.5 g/dL (14.0-18.0); Lymphocytes 3 % (21-51); MDiff Complete? YES; Mean Corpuscular HGB CONC 33.6 g/dL (32.0-36.0); Mean Corpuscular Hemoglobin 33.4 pg (27.0-31.0); Mean Corpuscular Volume 99.3 fL (78.0-98.0); Mean Platelet Volume 5.9 fL (7.4-10.4); Monocytes 3 % (0-10); Neutrophil 78 % (42-75); PLT Morphology Comment Appears Adequate; Platelet Count 203 thou/uL (130-400); RBC Distribution Width 11.6 % (11.5-14.5); Red Blood Cell (RBC) Count 3.44 mill/uL (4.70-6.10); White Blood Cell (WBC) Count 11.8 thou/uL (4.8-10.8)
[2018-05-02] MEDS: Budesonide 0.5 MG/2 ML NEB NEB SCH (06:44)
[2018-05-02] MEDS ORDERED: Potassium Phosphate 15 MMOL in Sodium Chloride 0.9% 250 ML 250 ML IVPB SCH (06:45)
[2018-05-02] MEDS: Arformoterol 15 MCG/2 ML NEB NEB SCH ×2 (06:47→18:47)
[2018-05-02] MEDS: Ascorbic Acid 500 mg Chewable Tablet PO SCH (08:23)
[2018-05-02] MEDS: Folic Acid 1 MG TAB PO SCH (08:24)
[2018-05-02] MEDS: Enoxaparin Sodium 40 MG/0.4 ML SYRINGE SC SCH (08:24)
[2018-05-02] MEDS: Cyanocobalamin (Vitamin B-12) 1,000 MCG TAB PO SCH (08:24)
[2018-05-02] MEDS: Calcium Carbonate 600 MG TAB PO SCH (08:24)
[2018-05-02] MEDS: Propranolol 10 MG TAB PO SCH ×2 (08:25→20:48)
[2018-05-02] MEDS: Lisinopril 5 MG TAB PO SCH (08:25)
[2018-05-02] MEDS: Topiramate 100 MG TAB PO SCH ×2 (09:23→20:48)
--- NOTE | 2018-05-02 10:34 | PDOC.PN ---
- Subjective Encounter Start Date: 05/02/18 Encounter Start Time: 08:30 Patient seen and examined for copd exacerbation. No new complaints. No overnight events - Objective Resuscitation Status: Resuscitation Status DNR:Do Not Resuscitate MAR Reviewed: Yes Vital Signs & Weight: Vital Signs (12 hours) Temp Pulse Resp BP Pulse Ox 05/02/18 10:24 80 14 05/02/18 09:45 97.9 F 80 16 05/02/18 08:25 80 05/02/18 08:22 80 20 131/72 90 L 05/02/18 06:47 74 16 97 05/02/18 06:44 74 16 97 05/02/18 06:38 98.9 F 73 20 140/64 98 Weight Admit Weight 205 lb 12.8 oz Weight 206 lb 8 oz I&O: 05/01/18 05/02/18 05/03/18 06:59 06:59 06:59 Intake Total 3297 1220 Output Total 150 302 Balance 3147 918 Result Diagrams: 05/02/18 05:06 05/02/18 05:06 Additional Labs: Accuchecks 05/02/18 05/01/18 05/01/18 06:08 21:04 16:57 POC Glucose 136 H 169 H 140 H 05/01/18 11:18 POC Glucose 184 H EKG Reviewed by me: Yes (nsr) Phys Exam - Physical Examination Constitutional: NAD HEENT: PERRLA, moist MMs, sclera anicteric Neck: no JVD, supple Respiratory: no wheezing, no rales, no rhonchi Cardiovascular: RRR, no significant murmur, no rub Gastrointestinal: soft, non-tender, no distention, positive bowel sounds Musculoskeletal: no edema, pulses present Neurological: non-focal, normal sensation Lymphatic: no nodes Psychiatric: normal affect Skin: no rash, normal turgor Dx/Plan (1) COPD exacerbation Code(s): J44.1 - CHRONIC OBSTRUCTIVE PULMONARY DISEASE W (ACUTE) EXACERBATION Status: Acute (2) Hypokalemia Code(s): E87.6 - HYPOKALEMIA Status: Acute (3) Hyponatremia Code(s): E87.1 - HYPO-OSMOLALITY AND HYPONATREMIA Status: Acute (4) Sepsis Code(s): A41.9 - SEPSIS, UNSPECIFIED ORGANISM Status: Acute Qualifiers: Sepsis type: sepsis due to unspecified organism Qualified Code(s): A41.9 - Sepsis, unspecified organism (5) UTI (urinary tract infection) Status: Acute Qualifiers: Urinary tract infection type: acute cystitis Hematuria presence: without hematuria Qualified Code(s): N30.00 - Acute cystitis without hematuria (6) Anxiety and depression Code(s): F41.9 - ANXIETY DISORDER, UNSPECIFIED; F32.9 - MAJOR DEPRESSIVE DISORDER, SINGLE EPISODE, UNSPECIFIED Status: Chronic (7) DM type 2 (diabetes mellitus, type 2) Status: Chronic Qualifiers: Diabetes mellitus oil heaterman insulin use: without alf use Diabetes mellitus complication status: with unspecified complications Qualified Code(s) : E11.8 - Type 2 diabetes mellitus with unspecified complications (8) HTN (hypertension) Code(s): I10 - ESSENTIAL (PRIMARY) HYPERTENSION Status: Chronic Qualifiers: Hypertension type: essential hypertension Qualified Code(s): I10 - Essential (primary) hypertension (9) Macrocytic anemia Code(s): D53.9 - NUTRITIONAL ANEMIA, UNSPECIFIED Status: Chronic (10) Obesity (BMI 30-39.9) Code(s): E66.9 - OBESITY, UNSPECIFIED Status: Chronic - Plan cont current plan of care, plan discussed w/ family, continue antibiotics, case management social worker, respiratory therapy * DC tele * transfer to medical * slowly improving * continue rocephin and levaquin * respiratory therapy * social work for discharge planning. Review of Systems - Review of Systems Other: not reliable due to level of cognitive status - Medications/Allergies Allergies/Adverse Reactions: Allergies Allergy/AdvReac Type Severity Reaction Status Date / Time No Known Allergies Allergy Verified 04/24/14 01:54 Medications: Current Medications Acetaminophen (Tylenol) 1,000 mg PO Q6H PRN PRN Reason: Headache/Fever or Mild Pain Albuterol/Ipratropium (Duoneb) 3 ml NEB [id number] [facility] Last Admin: 05/02/18 10:24 Dose: 3 ml Arformoterol Tartrate (Brovana) 15 mcg NEB BID-RT [facility] Last Admin: 05/02/18 06:47 Dose: 15 mcg Ascorbic Acid (Vitamin C) 500 mg PO DAILY [facility] Last Admin: 05/02/18 08:23 Dose: 500 mg Benzonatate (Tessalon) 200 mg PO Q6H PRN PRN Reason: Cough Budesonide (Pulmicort Neb Solution) 0.5 mg NEB DAILY-RT [facility] Last Admin: 05/02/18 06:44 Dose: 0.5 mg Calcium Carbonate (Caltrate) 600 mg PO DAILY [facility] Last Admin: 05/02/18 08:24 Dose: 600 mg Cyanocobalamin (Vitamin B-12) 1,000 mcg PO DAILY [facility] Last Admin: 05/02/18 08:24 Dose: 1,000 mcg Enoxaparin Sodium (Lovenox) 40 mg SC 0900 [facility] Last Admin: 05/02/18 08:24 Dose: 40 mg Famotidine (Pepcid) 20 mg PO QPM [facility] Last Admin: 05/01/18 20:26 Dose: 20 mg Folic Acid (Folvite) 1 mg PO DAILY [facility] Last Admin: 05/02/18 08:24 Dose: 1 mg Ceftriaxone Sodium 2 gm/ (Sodium Chloride) 100 mls @ 200 mls/hr IVPB Q24HR [facility] Last Admin: 05/01/18 20:25 Dose: 100 mls Potassium Phosphate 15 mmol/ (Sodium Chloride) 255 mls @ 63.75 mls/hr IVPB NOW [facility] Stop: 05/02/18 12:00 Last Admin: 05/02/18 09:23 Dose: 255 mls Lisinopril (Zestril) 2.5 mg PO DAILY [facility] Last Admin: 05/02/18 08:25 Dose: 2.5 mg Methylprednisolone Sodium Succinate (Solu-Medrol) 20 mg IVP Q8HR [facility] Last Admin: 05/02/18 06:07 Dose: 20 mg Ondansetron HCl (Zofran Odt) 4 mg PO Q6H PRN PRN Reason: Nausea/Vomiting Ondansetron HCl (Zofran) 4 mg IVP Q6H PRN PRN Reason: Nausea/Vomiting Propranolol HCl (Inderal) 10 mg PO BID [facility] Last Admin: 05/02/18 08:25 Dose: 10 mg Sertraline HCl (Zoloft) 100 mg PO DAILY [facility] Last Admin: 05/02/18 08:26 Dose: 100 mg Sodium Chloride (Flush - Normal Saline) 10 ml IVF Q12HR [facility] Last Admin: 05/02/18 08:26 Dose: 10 ml Sodium Chloride (Flush - Normal Saline) 10 ml IVF PRN PRN PRN Reason: Saline Flush Topiramate (Topamax) 100 mg PO BID [facility] Last Admin: 05/02/18 09:23 Dose: 100 mg Ziprasidone (Geodon) 20 mg PO QPM-[facility] Last Admin: 05/01/18 17:26 Dose: 20 mg
[2018-05-02] MEDS ORDERED: Diphenoxylate HCl/Atropine Tablet PO PRN (16:29)
[2018-05-02] MEDS: Ziprasidone 20 MG CAP PO SCH (18:02)
[2018-05-02 20:30] LABS: Vancomycin, Trough 7.9 ug/mL
[2018-05-02] MEDS: cefTRIAXone\\ROCEPHIN 2 GM in Sodium Chloride 0.9% 100 ML IVPB SCH (20:45)
[2018-05-02] MEDS: Famotidine 20 MG TAB PO SCH (20:48)
[2018-05-03] MEDS: Budesonide 0.5 MG/2 ML NEB NEB SCH (06:42)
[2018-05-03] MEDS: Arformoterol 15 MCG/2 ML NEB NEB SCH (06:42)
[2018-05-03] MEDS: Lisinopril 5 MG TAB PO SCH (08:30)
[2018-05-03] MEDS: Folic Acid 1 MG TAB PO SCH (08:30)
[2018-05-03] MEDS: Calcium Carbonate 600 MG TAB PO SCH (08:30)
[2018-05-03] MEDS: Ascorbic Acid 500 mg Chewable Tablet PO SCH (08:30)
[2018-05-03] MEDS: Topiramate 100 MG TAB PO SCH (08:30)
[2018-05-03] MEDS: Enoxaparin Sodium 40 MG/0.4 ML SYRINGE SC SCH (08:31)
[2018-05-03] MEDS: Propranolol 10 MG TAB PO SCH (08:31)
[2018-05-03] MEDS: Cyanocobalamin (Vitamin B-12) 1,000 MCG TAB PO SCH (08:31)
[2018-05-03 11:26] VITALS: BP 162/82; TEMP 98.2
--- NOTE | 2018-05-03 12:06 | DIS ---
PRIMARY CARE PHYSICIAN: Dr. Marilu Isaac DATE OF ADMISSION 04/29/2018 DATE OF DISCHARGE 05/03/2018 DISCHARGE DISPOSITION: Home with home hospice. PRIMARY DISCHARGE DIAGNOSES: 1. Chronic obstructive pulmonary disease exacerbation. 2. Hypokalemia. 3. Hyponatremia. 4. Sepsis. 5. Urinary tract infection. SECONDARY DISCHARGE DIAGNOSES: Obesity with BMI 35, macrocytic anemia, hypertension, diabetes type 2 , chronic respiratory failure with hypoxia, anxiety and depression, physical deconditioning. PRIMARY PROCEDURE/OPERATION: None. RADIOLOGICAL INVESTIGATION: Chest x-ray on admission showed no acute process. SIGNIFICANT LABORATORY DATA: WBC 11.8, hemoglobin 11.5, platelet 203. Sodium 138, potassium 4.0, BU N 20, creatinine 0.76, calcium 8.2, phosphorus 1.5, magnesium 1.9. LFTs normal. BNP 74. Cortisol 8 .30. Urinalysis suggestive of UTI. Blood culture negative. Urine culture grew Klebsiella, Enteroba cter. C. diff negative. DISCHARGE MEDICATIONS: Omnicef 300 mg p.o. b.i.d. for 5 more days, vitamin C 500 mg p.o. daily, Pulm icort nebulization daily, calcium 1 tablet daily, vitamin B12 1000 mcg p.o. daily, Pepcid 20 mg p.o. daily, folic acid 1 mg p.o. daily. Fluocinonide topical application b.i.d. Perforomist 20 mcg via in halation b.i.d., hydrochlorothiazide 12.5 mg p.o. daily, DuoNeb q.6 hourly, an as needed, lisinopril 2.5 mg p.o. daily, prednisone 20 mg p.o. daily for 3 days, then 10 mg p.o. daily for 3 days, then to continue 2.5 mg p.o. daily, Inderal 10 mg p.o. b.i.d., Florastor 250 mg p.o. daily for 10 days, Zolof t 100 mg p.o. daily, topiramate 100 mg p.o. b.i.d., Geodon 20 mg p.o. daily. CONTRAINDICATIONS: None. CODE STATUS: DNR. INPATIENT CONSULTANTS: None. ALLERGIES: No known drug allergy. DISCHARGE PLAN: Post hospital, the patient will follow up with primary care physician, Dr. Marilu allred in 1 week. HOSPITAL COURSE: An 82-year-old male with the above-mentioned medical problems who was admitted by Liane Ann. Please see his H&P for further details. The patient has chronic respiratory failure and un derlying chronic obstructive pulmonary disease. He was having increasing cough, generalized weakness , and fever. He was diagnosed with a COPD exacerbation. He was found with a urinary tract infection . He was admitted to telemetry floor. He was treated with broad spectrum antibiotic therapy. He wa s given steroids and gentle IV fluid as well as respiratory therapy. The patient improved to his bas kirsten level. The patient's blood culture remained negative, but urine culture growing Enterobacter and Klebsiella. We had a discussion with the patient's family member about advanced directive during this admission and family member decided to make him DNR as well as later on, they also accepted to send him home w [facility] home hospice. Necessary equipment Hospice team is arranging at home today. Upon stabilization, patient was transferred to medical floor. This patient is chronically physically deconditioned and he was not able to do any more therapy. The patient and family member were not in terested in sending him to any kind of placement. He rather wanted to go home with home hospice. Hi s abnormal electrolytes were corrected while in hospital. By the time of discharge, the patient is medically stable, he is stable for discharge as well. PHYSICAL EXAMINATION: VITAL SIGNS: Today, temperature 98.2, pulse 71, respiratory rate 16, saturation 96%, blood pressure 144/77, weight 206 pounds. GENERAL: The patient is currently alert, awake, no obvious acute distress. HEAD: Normocephalic, atraumatic. EYES: Pupils round, reactive to light. Extraocular muscle intact. ENT: Oropharynx within normal limits. Moist mucous membranes, no oral lesion, no pharyngeal erythem a, no exudate. NECK: Supple, no JVD, no thyromegaly, no carotid bruit. No jugular venous distention. LUNGS: Clear to auscultation without any rhonchi or rales. CARDIAC: S1, S2 regular without any significant murmur. ABDOMEN: Soft and benign. EXTREMITIES: No edema. NEUROLOGIC: Nonfocal examination. Overall, the patient is medically stable for discharge today.
== END 2018-05-03 14:05 | disposition home or self-care (01) | DRG 871 ==
LOC: SCSER 12:02 → 2NO 16:20 → T4-B 05-02 08:59
PROVIDERS: ADMIT Internal Medicine Infectious Disease; ATTEND Internal Medicine Infectious Disease
DX: A41.9 Sepsis, unspecified organism (principal); J96.21 Acute and chronic respiratory failure with hypoxia; N39.0 Urinary tract infection, site not specified; N17.9 Acute kidney failure, unspecified; J44.1 Chronic obstructive pulmonary disease with (acute) exacerbation; E87.1 Hypo-osmolality and hyponatremia; B96.1 Klebsiella pneumoniae [K. pneumoniae] as the cause of diseases classified elsewhere; B96.89 Other specified bacterial agents as the cause of diseases classified elsewhere; E87.6 Hypokalemia; E66.9 Obesity, unspecified; Z68.35 Body mass index [BMI] 35.0-35.9, adult; D53.9 Nutritional anemia, unspecified; I10 Essential (primary) hypertension; E11.9 Type 2 diabetes mellitus without complications; F41.9 Anxiety disorder, unspecified; F32.9 Major depressive disorder, single episode, unspecified; G25.2 Other specified forms of tremor; Z66 Do not resuscitate; Z51.5 Encounter for palliative care; Z87.891 Personal history of nicotine dependence; Z86.11 Personal history of tuberculosis; T50.2X5A Adverse effect of carbonic-anhydrase inhibitors, benzothiadiazides and other diuretics, initial encounter; Y92.009 Unspecified place in unspecified non-institutional (private) residence as the place of occurrence of the external cause
CPT/HCPCS: 36415; 36416; 71045; 80048; 80053; 80202; 81003; 81015; 82533; 83605; 83735; 83880; 84100; 85007; 85025; 85027; 87040; 87077; 87086; 87186; 87324; 87449; 94640; 94760; 96365; 96366; A4216; G8978-GP-CM; G8979-GP-CJ; G8996-GN-CK; G8997-GN-CK; J0696; J1650; J1956; J2543; J2920; J3370; J7050; J7620; J7626